=== PATIENT | female | born 1990 | race Two or more races ===

== ENCOUNTER 2018-06-12 13:20 | Outpatient (CLI) | payer MEDICAID ==
[2018-06-12] MEDS ORDERED: RINGERS SOLUTION,LACTATED 1,000 ML IV PRN (13:42)
[2018-06-12 13:58] LABS: APPEARANCE,URINE CLOUDY; BILIRUBIN,URINE NEGATIVE (NEGATIVE); GLUCOSE, URINE NEGATIVE (NEGATIVE); KETONES,URINE NEGATIVE (NEGATIVE); LEUKOCYTE ESTERASE,URINE MODERATE (NEGATIVE); NITRITE,URINE NEGATIVE (NEGATIVE); PROTEIN,URINE NEGATIVE (NEGATIVE)
[2018-06-12 14:00] LABS: COLOR,URINE YELLOW
[2018-06-12 14:29] LABS: URINE AMPHETAMINES SCREEN NEGATIVE; URINE BARBITURATES SCREEN NEGATIVE; URINE BENZODIAZEPINES SCREEN NEGATIVE; URINE COCAINE SCREEN NEGATIVE; URINE MARIJUANA (THC) SCREEN NEGATIVE; URINE METHADONE SCREEN NEGATIVE; URINE PHENCYCLIDINE SCREEN NEGATIVE
== END 2018-06-12 15:10 | disposition home or self-care (01) ==
LOC: LC 13:20
PROVIDERS: ATTEND Student in an Organized Health Care Education/Training Program
DX: O47.03 False labor before 37 completed weeks of gestation, third trimester (principal); Z3A.37 37 weeks gestation of pregnancy
CPT/HCPCS: 80307; 81005

== ENCOUNTER 2018-06-20 09:44 | Outpatient (CLI) | payer MEDICAID ==
--- NOTE | 2018-06-20 11:21 | Non Stress Test Report ---
Non Stress Test Datetime Report Generated by CPN: 06/20/2018 11:20 DEMOGRAPHIC EGA NST: 38.6 EGA NST: 37.5 INDICATION Indication for Study: Diabetes Mellitus; Ordered by Provider Indication for Study: Other Indication for Study (NST) Other: repeat NST from office diet controlled GDM Indication for Study (NST) Other: lc/dehydration VITAL SIGNS Pulse - NST: 77 RESP - NST: 18 NBPSYS NST: 105 NBPDIA NST: 59 MONITORING Monitor Explained: Monitor Explained; Test Explained; Patient Verbalized Understanding Monitor Explained: Monitor Explained; Test Explained; Patient Verbalized Understanding Time on Monitor: 06/20/2018 09:53 Time on Monitor: 06/12/2018 14:05 Time off Monitor: 06/20/2018 10:27 Time off Monitor: 06/12/2018 14:38 NST Duration: 34 NST Duration: 33 NST INTERVENTIONS NST Interventions: PO Hydration NST Interventions: PO Hydration; IV Fluids; Reposition Patient Physician Notified NST: P Peña CNM Physician Notified NST: C Bermudez CNM BABY A: [id number] BABY A Movement : Present Movement : Present Contraction Frequency : denies Contraction Frequency : 0 FHR Baseline : 140 FHR Baseline : 150 Accelerations : 15X15 Accelerations : 15X15 Decelerations : None Decelerations : None Variability : Moderate 6-25bpm Variability : Moderate 6-25bpm NST Review: Meets Criteria for Reactive NST NST Review: Meets Criteria for Reactive NST NST Review and Verified By : Corrina Corona RN NST Review and Verified By : Jake Pearson RN NST Results: Reactive NST Results: Reactive NST REPORT Report Trigger: Send Report
== END 2018-06-20 10:35 | disposition home or self-care (01) ==
LOC: LC 09:44
PROVIDERS: ATTEND Obstetrics & Gynecology
PROC: 4A1HXCZ Monitoring of Products of Conception, Cardiac Rate, External Approach (ICD-10-PCS; principal; 2018-06-20)
DX: O26.893 Other specified pregnancy related conditions, third trimester (principal); Z3A.38 38 weeks gestation of pregnancy
CPT/HCPCS: 59025

== ENCOUNTER 2018-06-21 10:00 | Outpatient (CLI) | payer MEDICAID ==
[2018-06-21 10:49] LABS: APPEARANCE,URINE SLIGHTLY-CLOUDY; BILIRUBIN,URINE NEGATIVE (NEGATIVE); COLOR,URINE YELLOW; GLUCOSE, URINE NEGATIVE (NEGATIVE); KETONES,URINE NEGATIVE (NEGATIVE); LEUKOCYTE ESTERASE,URINE SMALL (NEGATIVE); NITRITE,URINE NEGATIVE (NEGATIVE); PROTEIN,URINE NEGATIVE (NEGATIVE); URINE SPECIFIC GRAVITY 1.011; UROBILINOGEN,URINE NEGATIVE mg/dL (<2.0)
--- NOTE | 2018-06-21 11:34 | Non Stress Test Report ---
Non Stress Test Datetime Report Generated by CPN: 06/21/2018 11:34 DEMOGRAPHIC Test Number: 3 EGA NST: 39.0 INDICATION Indication for Study: Ordered by Provider URINE RESULTS Urine Protein, NST: Negative Urine Ketones - NST: Negative Urine Glucose - NST: Negative Urine Blood - NST: Negative MONITORING Monitor Explained: Monitor Explained; Test Explained; Patient Verbalized Understanding Time on Monitor: 06/21/2018 10:45 Time off Monitor: 06/21/2018 11:22 NST Duration: 37 NST INTERVENTIONS NST Interventions: PO Hydration; Reposition Patient Physician Notified NST: A. Raymond CNM BABY A: [id number] BABY A Movement : Present Contraction Frequency : x1 FHR Baseline : 145 Accelerations : 15X15 Decelerations : None Variability : Moderate 6-25bpm NST Review: Meets Criteria for Reactive NST NST Review and Verified By : NILS Dickson NST Results: Reactive NST REPORT Report Trigger: Send Report
[2018-06-21 11:46] LABS: URINE AMPHETAMINES SCREEN NEGATIVE; URINE BARBITURATES SCREEN NEGATIVE; URINE BENZODIAZEPINES SCREEN NEGATIVE; URINE COCAINE SCREEN NEGATIVE; URINE MARIJUANA (THC) SCREEN NEGATIVE; URINE METHADONE SCREEN NEGATIVE; URINE PHENCYCLIDINE SCREEN NEGATIVE
== END 2018-06-21 11:36 | disposition home or self-care (01) ==
LOC: LC 10:00
PROVIDERS: ATTEND Obstetrics & Gynecology
PROC: 4A1HXCZ Monitoring of Products of Conception, Cardiac Rate, External Approach (ICD-10-PCS; principal; 2018-06-21)
DX: O47.1 False labor at or after 37 completed weeks of gestation (principal); Z3A.39 39 weeks gestation of pregnancy
CPT/HCPCS: 59025; 80307; 81005

== ENCOUNTER 2018-06-21 22:36 | Outpatient (CLI) | payer MEDICAID ==
[2018-06-21 23:18] LABS: APPEARANCE,URINE SLIGHTLY-CLOUDY; BILIRUBIN,URINE NEGATIVE (NEGATIVE); COLOR,URINE YELLOW; GLUCOSE, URINE NEGATIVE (NEGATIVE); KETONES,URINE NEGATIVE (NEGATIVE); LEUKOCYTE ESTERASE,URINE NEGATIVE (NEGATIVE); NITRITE,URINE NEGATIVE (NEGATIVE); PROTEIN,URINE NEGATIVE (NEGATIVE); URINE SPECIFIC GRAVITY 1.012; UROBILINOGEN,URINE NEGATIVE mg/dL (<2.0)
[2018-06-21 23:34] LABS: URINE AMPHETAMINES SCREEN NEGATIVE; URINE BARBITURATES SCREEN NEGATIVE; URINE BENZODIAZEPINES SCREEN NEGATIVE; URINE COCAINE SCREEN NEGATIVE; URINE MARIJUANA (THC) SCREEN NEGATIVE; URINE METHADONE SCREEN NEGATIVE; URINE PHENCYCLIDINE SCREEN NEGATIVE
--- NOTE | 2018-06-21 23:54 | Non Stress Test Report ---
Non Stress Test Datetime Report Generated by CPN: 06/21/2018 23:54 DEMOGRAPHIC EGA NST: 39.0 INDICATION Indication for Study: Ordered by Provider MONITORING Monitor Explained: Monitor Explained; Test Explained; Patient Verbalized Understanding Time on Monitor: 06/21/2018 23:07 Time off Monitor: 06/21/2018 23:46 NST Duration: 39 NST INTERVENTIONS NST Interventions: Reposition Patient Physician Notified NST: Dr. Cj BABY A: [id number] BABY A Movement : Present Contraction Frequency : none noted FHR Baseline : 135 Accelerations : 15X15 Decelerations : None Variability : Moderate 6-25bpm NST Review: Meets Criteria for Reactive NST NST Review and Verified By : Clementina Chowdary RN NSVictoriano Results: Reactive NST REPORT Report Trigger: Send Report
== END 2018-06-21 23:51 | disposition home or self-care (01) ==
LOC: LC 22:36
PROVIDERS: ATTEND Obstetrics & Gynecology
PROC: 4A1HXCZ Monitoring of Products of Conception, Cardiac Rate, External Approach (ICD-10-PCS; principal; 2018-06-21)
DX: O47.1 False labor at or after 37 completed weeks of gestation (principal); Z3A.39 39 weeks gestation of pregnancy
CPT/HCPCS: 59025; 80307; 81005

== ENCOUNTER 2018-06-27 15:06 | Inpatient (IN) | payer MEDICAID ==
[2018-06-28] MEDS: RINGERS SOLUTION,LACTATED 1,000 ML IV PRN ×3 (07:50→15:39)
[2018-06-28] MEDS ORDERED: OXYTOCIN/NORMAL SALINE 20 UNIT/1,000 ML RTUINJ ONE (08:04)
[2018-06-28] MEDS ORDERED: LIDOCAINE 1% INJ-PF (10 MG/ML) 30 ML SDV ONE (08:04)
[2018-06-28] MEDS ORDERED: OXYTOCIN 10 UNIT/ML VIAL ONE (08:04)
[2018-06-28] MEDS ORDERED: MISOPROSTOL 0.2 MG TABLET ONE (08:04)
[2018-06-28] MEDS ORDERED: OXYTOCIN/NORMAL SALINE 20 UNIT/1,000 ML RTUINJ IV PRN ×2 (08:05→19:45)
[2018-06-28] MEDS ORDERED: RINGERS SOLUTION,LACTATED 300 ML IV ONE (08:05)
[2018-06-28 08:17] LABS: ABSOLUTE EOSINOPHILS # (AUTO) 0.1 10^3/uL (0.0-0.6); ABSOLUTE LYMPHOCYTES (AUTO) 1.9 10^3/uL (0.5-4.7); ABSOLUTE MONOCYTES (AUTO) 0.4 10^3/uL (0.1-1.4); ABSOLUTE NEUT (AUTO) 4.6 10^3/uL (1.7-8.2); BASOPHILS % (AUTO) 0.2 % (0-2); HEMATOCRIT 31.2 % (36.0-47.0); HEMOGLOBIN 10.2 g/dL (12.0-15.5); LYMPHOCYTES % (AUTO) 26.8 % (13-45); MEAN CORPUSCULAR HEMOGLOBIN 26.5 pg (27.0-33.4); MEAN CORPUSCULAR HGB CONC 32.8 g/dL (32.0-36.0); MEAN CORPUSCULAR VOLUME 81 fl (80-97); MONOCYTES % (AUTO) 6.3 % (3-13); PLATELET COUNT 252 10^3/uL (150-450); RED BLOOD COUNT 3.86 10^6/uL (3.72-5.28); RED CELL DISTRIBUTION WIDTH 14.3 % (11.5-14.0); SEGMENTED NEUTROPHILS % (AUTO) 65.7 % (42-78); TOTAL CELLS COUNTED % (AUTO) 100 %
[2018-06-28 08:36] LABS: APPEARANCE,URINE SLIGHTLY-CLOUDY; BILIRUBIN,URINE NEGATIVE (NEGATIVE); COLOR,URINE YELLOW; GLUCOSE, URINE NEGATIVE (NEGATIVE); KETONES,URINE NEGATIVE (NEGATIVE); LEUKOCYTE ESTERASE,URINE TRACE (NEGATIVE); NITRITE,URINE NEGATIVE (NEGATIVE); PROTEIN,URINE NEGATIVE (NEGATIVE); URINE SPECIFIC GRAVITY 1.017; UROBILINOGEN,URINE NEGATIVE mg/dL (<2.0)
--- NOTE | 2018-06-28 08:39 | Admission Physical ---
Datetime Report Generated by CPN: 06/28/2018 08:34 CURRENT ADMISSION Chief Complaint: Scheduled Induction of Labor Indication for Induction: Maternal Diabetes Admit Impression : Term, Intrauterine Admit Plan: Admit to Unit; Initiate Labor Induction Protocol ALLERGIES Medication Allergies: No Medication Allergies: No Known Allergies (06/21/2018) Latex: No Latex Allergies Food Allergies: no Environmental Allergies: no OBSTETRICAL HISTORY EDC: 06/28/2018 00:00 : 1 Para: 0 Term: 0 : 0 SAB: 0 IAB: 0 Ectopic: 0 Livin Cesareans: 0 VBACs: 0 Multiple Births: 0 Gestational Diabetes: Yes Rh Sensitization: No Incompetent Cervix: No MABEL: No Infertility: No ART Treatment: No Uterine Anomaly: No IUGR: No Hx Previous C/S: No Macrosomia: No Hx Loss/Stillborn: No PIH: No Hx : No Placenta Previa/Abruption: No Depression/PP Depression: No PTL/PROM: No Post Hemorrhage: No Current Procedures: Ultrasound; NST Obstetrical History Comments: GDM poor control SEE RECORDS Alcohol: No Marijuana : Yes Cocaine: No Other Illicit Drugs: No Cigarettes: Never Smoker. [id number] MEDICAL HISTORY Diabetes: No Diabetes Type: Gestational Diabetes Blood Transfusion: No Pulmonary Disease (Asthma, TB): No Breast Disease: Yes Hypertension: No Tool Maker Bench Surgery: No Heart Disease: No Hosp/Surgery: Yes Autoimmune Disorder: No Anesthetic Complications: No Kidney Disease: Yes Abnormal Pap Smear: No Neuro/Epilepsy: No Psychiatric Disorders: No Other Medical Diseases: No Hepatitis/Liver Disease: No Significant Family History: No Varicosities/Phlebitis: No Trauma/Violence : No Thyroid Dysfunction: No Medical History Comments: Gallbladder and appendictomy INFECTIOUS HISTORY Gonorrhea: No Genital Herpes: No Chlamydia: Yes Tuberculosis: No Syphilis: No Hepatitis: No HIV/AIDS Exposure: No Rash or Viral Illness: No HPV: No PHYSICAL EXAM General: Normal HEENT: Normal Neurologic: Normal Thyroid: Normal Heart: Normal Lungs: Normal Breast: Normal Back: Normal Abdomen: Normal Genitourinary Exam: Normal Extremities: Normal DTRs: Normal Pelvic Type: Adequate Vital Signs: Reviewed; Within Normal Limits MEMBRANES Pooling: Negative Membranes: Intact FETUS A EGA: 40.0 Monitoring: External US FHR- Baseline: 150 Variability: Moderate 6-25bpm Accelerations: 15X15 Decelerations: None FHR Category: Category I Admit Comment: at 40 wks with Hx of GDM -A1 this . Here this morning for IOL. Pt doing well, no complaints. Orders to start Routine Pitocin per Dr Guzman. GBS negative, VE in the office yesterday pt was noted to be 3 cm. Pt does plan to get an epidural when she is in labor. Attending MD is Dr Guzman today PLANS FOR LABOR AND DELIVERY Labor and Delivery: None Pain Management: Epidural Feeding Preference: Breast Benefit of Breast Feed Discussed: Yes Circumcision: N/A INFORMED CONSENT Assignment: Cory Guzman MD Signature: with User ID: [email or web address] : with User ID: [email or web address]
[2018-06-28 08:52] LABS: URINE AMPHETAMINES SCREEN NEGATIVE; URINE BARBITURATES SCREEN NEGATIVE; URINE BENZODIAZEPINES SCREEN NEGATIVE; URINE COCAINE SCREEN NEGATIVE; URINE MARIJUANA (THC) SCREEN NEGATIVE; URINE METHADONE SCREEN NEGATIVE; URINE PHENCYCLIDINE SCREEN NEGATIVE
[2018-06-28] MEDS ORDERED: EPHEDRINE SULFATE INJ 50 MG/1 ML AMPULE ONE (14:48)
[2018-06-28] MEDS ORDERED: BUPIVACAINE HCL 0.25 % INJ/PF (2.5 MG/1 ML) 30 ML VIAL ONE (14:49)
[2018-06-28] MEDS ORDERED: FENTANYL/BUPIVACAINE/NS/PF 300 MCG/150 ML RTUINJ EPI ONE (14:49)
--- NOTE | 2018-06-28 18:44 | Warning Signs in Babies ---
VOD Warning Signs Datetime Report Generated by [facility]: 06/28/2018 18:44 VOD#608 -Warning Signs in Babies: Viewed with Parent(s)/Family (06/28/2018 09:30:Brittani Brooks RN)
[2018-06-28] MEDS ORDERED: BENZOCAINE/MENTHOL AEROSOL SPRAY 56 ML TOP PRN (19:45)
[2018-06-28] MEDS ORDERED: PSEUDOEPHEDRINE HCL 30 MG TABLET PO PRN (19:45)
[2018-06-28] MEDS ORDERED: PROMETHAZINE HCL 25 MG SUPP.RECT PR PRN (19:45)
[2018-06-28] MEDS ORDERED: PROMETHAZINE HCL INJ 25 MG/1 ML VIAL IV PRN (19:45)
[2018-06-28] MEDS ORDERED: PROMETHAZINE HCL 25 MG TABLET PO PRN (19:45)
[2018-06-28] MEDS ORDERED: GLYCERIN/WITCH HAZEL LEAF 1 EACH MED..WIPE TP PRN (19:45)
[2018-06-28] MEDS ORDERED: MAGNESIUM HYDROXIDE SUSP 30 ML UDCUP PO PRN (19:45)
[2018-06-28] MEDS ORDERED: MEASLES,MUMPS&RUBELLA VACC/PF 0.5 ML VIAL SUBCUT PRN (19:45)
[2018-06-28] MEDS ORDERED: DIBUCAINE 1% OINTMENT 56 GM TP PRN (19:45)
[2018-06-28] MEDS ORDERED: NA PHOS,M-B/NA PHOS,DI-BA (ADULT) 133 ML ENEMA PR PRN (19:45)
[2018-06-28] MEDS ORDERED: ACETAMINOPHEN 650 MG SUPP.RECT PR PRN (19:45)
[2018-06-28] MEDS ORDERED: DIPHENHYDRAMINE HCL 25 MG CAPSULE PO PRN (19:45)
[2018-06-28] MEDS ORDERED: DIPH/PERTUSS(ACELL)/TETANUS VAC/PF 0.5 ML SYR (>=10YO) IM PRN (19:45)
[2018-06-28] MEDS ORDERED: ZOLPIDEM TARTRATE 5 MG TABLET PO PRN (19:45)
--- NOTE | 2018-06-28 21:19 | Delivery Summary ---
Del Sum A-C Datetime Report Generated by CPN: 06/28/2018 21:18 DELIVERY PERSONNEL DELIVERY PERSONNEL: [id number] Delivery Doctor:: Cory Guzman MD Labor and Delivery Nurse:: Comfort Norris RNqualitative field project manager Nurse:: Cecille Koch RN Nursery Nurse:: Lolyhank Hernandez RN MATERNAL INFORMATION Delivery Anesthesia: Epidural Medications After Delivery: Pitocin Drip 20 Units/1000ml NSS; Cytotec 1000mcg Per Rectum/Vagina Maternal Complications: None LABOR SUMMARY EDC: 06/28/2018 00:00 No. Babies in Womb: 1 Attempted: No Labor Anesthesia: Epidural LABOR INFORMATION Reason for Induction: Maternal Diabetes Onset of Labor: 06/28/2018 14:21 Complete Dilatation: 06/28/2018 18:52 Oxytocin: Induction Group B Beta Strep: neg Steroids Given: None Reason Steroids Not Administered: Not Applicable MEMBRANES Membranes Rupture Method: Artificial Rupture of Membranes: 06/28/2018 14:21 Length of Rupture (hr): 5.17 Amniotic Fluid Color: Moderate Meconium Amniotic Fluid Amount: Moderate Amniotic Fluid Odor: Normal STAGES OF LABOR Stage 1 hr: 4 Stage 1 min: 31 Stage 2 hr: 0 Stage 2 min: 39 Stage 3 hr: 0 Stage 3 min: 7 Total Time in Labor hr: 5 Total Time in Labor min: 17 VAGINAL DELIVERY Episiotomy: None Laceration #1: None Laceration Extension #1: N/A Laceration Repair: Not Applicable Sponge Count Correct: N/A CSECTION DELIVERY Primary Indication: N/A Secondary Indication: N/A CSection Incidence: N/A Labor: N/A Elective: N/A CSection Incision: N/A BABY A INFORMATION Delivery Date/Time: 06/28/2018 19:31 Method of Delivery: Vaginal Born in Route : No : N/A Forceps: N/A Vacuum Extraction: N/A Shoulder Dystocia : No PRESENTATION/POSITION BABY A Presentation: Cephalic Cephalic Presentation: Vertex Vertex Position: Direct OA Breech Presentation: N/A PLACENTA INFORMATION BABY A Placenta Delivery Time : 06/28/2018 19:38 Placenta Method of Delivery: Manual Removal Placenta Status: Delivered SCORES BABY A Heart Rate 1 min: >100 bpm Resp Effort 1 min: Good Cry Reflex Irritability 1 min: Cough or Sneeze or Pulls Away Muscle Tone 1 min: Active Motion Color 1 min: Blue/Pale Resuscitation Effort 1 min: Tactile Stimulation SCORE 1 MIN: 8 Heart Rate 5 min: >100 bpm Resp Effort 5 min: Good Cry Reflex Irritability 5 min: Cough or Sneeze or Pulls Away Muscle Tone 5 min: Active Motion Color 5 min: Body Duck, Extremities Blue Resuscitation Effort 5 min: Tactile Stimulation SCORE 5 MIN: 9 INFANT INFORMATION BABY A Gestational Age at Delivery: 40.0 Gestational Status: Full Term- 39- 40.6 Weeks Infant Outcome : Liveborn Condition : Stable Infant Sex: Female IDENTIFICATION BABY A Infant Verification Date/Time: 06/28/2018 20:13 ID Band Number: [id number] Mother's Name Verified: Yes Infant RN Verifying : B. Ring RN _ M. Chavira RN WEIGHT/LENGTH BABY A Birthweight (gm): 3300 Weight (lb): 7 Infant Weight (oz): 4 Infant Length (in): 20.00 Infant Length (cm): 50.80 CORD INFORMATION BABY A No. Cord Vessels: 3 Nuchal Cord : N/A Cord Blood Taken: Yes-For Storage (Mom's Blood type +) Suction: Mouth; Nose ASSESSMENT BABY A Complications: Meconium Physical Findings at Delivery: Within Normal Limits Physical Findings- Other: see nursery assessment Skin to Skin: Yes Clam Treader/ALS Called : No Care By: Destinee Hernandez RN Transferred To: Remains with Mother BABY B INFORMATION : N/A SIGNATURES Signature: with User ID: [email or web address]
[2018-06-28] MEDS: IBUPROFEN 800 MG TABLET PO SCH (22:50)
[2018-06-28] MEDS: FAMOTIDINE 20 MG TABLET PO SCH (22:50)
[2018-06-29] MEDS: ACETAMINOPHEN WITH CODEINE #3 TABLET PO PRN (01:06)
[2018-06-29] MEDS: IBUPROFEN 800 MG TABLET PO SCH ×4 (06:17→21:21)
[2018-06-29 07:29] LABS: HEMATOCRIT 30.5 % (36.0-47.0); HEMOGLOBIN 10.1 g/dL (12.0-15.5); MEAN CORPUSCULAR HEMOGLOBIN 26.7 pg (27.0-33.4); MEAN CORPUSCULAR HGB CONC 33.2 g/dL (32.0-36.0); MEAN CORPUSCULAR VOLUME 81 fl (80-97); PLATELET COUNT 223 10^3/uL (150-450); RED BLOOD COUNT 3.79 10^6/uL (3.72-5.28); RED CELL DISTRIBUTION WIDTH 14.4 % (11.5-14.0); WHITE BLOOD COUNT 8.1 10^3/uL (4.0-10.5)
[2018-06-29 08:14] LABS: RUBELLA INTERPRETATION POSITIVE
--- NOTE | 2018-06-29 09:35 | PDOC PROGRESS REPORT ---
Subjective-OB Progress Note for:: 06/29/18 - PP Day #1,doing well, Hx GDM this , B+ Rubela Immune, Physical Exam (OB) Vital Signs: Temp Pulse Resp BP Pulse Ox 98.1 F 65 17 106/50 L 98 06/29/18 07:35 06/29/18 07:35 06/29/18 07:35 06/29/18 07:35 06/29/18 07:35 Intake & Output 06/28/18 06/29/18 06/30/18 06:59 06:59 06:59 Intake Total 3475 Balance 3475 Weight 101.2 kg - General General Appearance: Appears well, Alert - PIH/Pre-Eclampsia Headache: Absent Epigastric Pain: No Visual Changes: No - Lochia Lochia Amount: Small 10-25 ml Lochia Color: Rubra/Red - Abdomen Description: Tender Hernia Present: No Fundal Description: Firm Fundal Height: 1/u - 2/u - Respiratory Respiratory Status: No respiratory distress - Abdominal Distension: No distension Tenderness: Nontender - Genitourinary Genitourinary Note: voiding - Extremities Upper extremity: Normal inspection Lower extremities: Other - trace edema - Neurological Cognition: Normal Orientation: AAOx4 - Psychological Associated symptoms: Normal affect, Normal mood - Skin Skin Temperature: Warm Skin Moisture: Dry Objective-Diagnostic Laboratory: 06/29/18 07:08 06/29/18 07:08 WBC 8.1 RBC 3.79 Hgb 10.1 L Hct 30.5 L MCV 81 MCH 26.7 L MCHC 33.2 RDW 14.4 H Plt Count 223 Assessment and Plan(PN) - Assessment and Plan (1) Gestational diabetes mellitus (GDM) affecting Is this a current diagnosis for this admission?: Yes (2) (normal spontaneous vaginal delivery) Is this a current diagnosis for this admission?: Yes - Time Spent with Patient Time with patient: Less than 15 minutes Medications reviewed and adjusted accordingly: Yes - Disposition Anticipated Discharge: Home Within: within 24 hours
[2018-06-29] MEDS: PRENATAL VITAMIN W DHA CAPSULE PO SCH (09:45)
[2018-06-29] MEDS: FAMOTIDINE 20 MG TABLET PO SCH ×2 (09:46→21:21)
[2018-06-29] MEDS: DOCUSATE SODIUM 100 MG CAPSULE PO SCH ×2 (09:46→21:23)
[2018-06-29] MEDS: SENNOSIDES/DOCUSATE 8.6-50 MG 1 EACH TABLET PO SCH (09:46)
[2018-06-29] MEDS: FERROUS SULFATE 325 MG TABLET PO SCH ×2 (09:46→21:23)
[2018-06-29 19:31] VITALS: BP 109/58
[2018-06-30] MEDS: IBUPROFEN 800 MG TABLET PO SCH (06:33)
[2018-06-30] MEDS: ACETAMINOPHEN WITH CODEINE #3 TABLET PO PRN (08:15)
--- NOTE | 2018-06-30 09:33 | PDOC DISCHARGE SUMMARY ---
Final Diagnosis Discharge Date: 06/30/18 - PP Dayt #2, doing well, O+, Rubella Immune, , Hx of GDM this - Final Diagnosis (1) Gestational diabetes mellitus (GDM) affecting Is this a current diagnosis for this admission?: Yes (2) (normal spontaneous vaginal delivery) Is this a current diagnosis for this admission?: Yes Discharge Data - Discharge Medication Prescriptions: Ibuprofen [Motrin 800 mg Tablet] 800 mg PO Q8 #60 tablet Home Medications: Vit,Calc76/Iron/Folic [Prenatabs Rx Tablet] 1 tab PO DAILY 06/12/18 Ibuprofen [Motrin 800 mg Tablet] 800 mg PO Q8 #60 tablet 06/30/18 Reason(s) for Admission: Induction of Labor, Gestional Diabetes Intrapartum Procedure(s): Spontaneous Vaginal Delivery - Diagnosis Test Laboratory: Temp Pulse Resp BP Pulse Ox 97.1 F 82 16 109/58 L 100 06/30/18 08:50 06/30/18 08:50 06/30/18 08:50 06/29/18 19:08 06/30/18 08:50 06/28/18 06/28/18 06/29/18 07:20 07:59 07:08 RBC 3.86 3.79 Hgb 10.2 L 10.1 L Hct 31.2 L 30.5 L Urine Opiates Screen NEGATIVE - Discharge information/Instructions Discharge Activity: Activity As Tolerated, No Lifting Over 10 Pounds, No Lifting/Push/Pulling, Pelvic Rest Discharge Diet: As Tolerated, Regular Disposition: HOME, SELF-CARE Follow up with: [facility] in: 4, Weeks
[2018-06-30] MEDS: FAMOTIDINE 20 MG TABLET PO SCH (10:36)
[2018-06-30] MEDS: FERROUS SULFATE 325 MG TABLET PO SCH (10:36)
[2018-06-30] MEDS: DOCUSATE SODIUM 100 MG CAPSULE PO SCH (10:36)
[2018-06-30] MEDS: PRENATAL VITAMIN W DHA CAPSULE PO SCH (10:37)
[2018-06-30] MEDS: SENNOSIDES/DOCUSATE 8.6-50 MG 1 EACH TABLET PO SCH (10:37)
[2018-07-02 10:51] LABS: HEPATITIS C QUANTITATION HCV Not Detected IU/mL (.)
== END 2018-06-30 14:02 | disposition home or self-care (01) | DRG 807 ==
LOC: LR 06-28 07:19 → 2S 06-28 21:58
PROVIDERS: ADMIT Obstetrics & Gynecology Gynecology; ATTEND Obstetrics & Gynecology Gynecology
PROC: 10E0XZZ Delivery of Products of Conception, External Approach (ICD-10-PCS; principal; 2018-06-28)
DX: O24.420 Gestational diabetes mellitus in childbirth, diet controlled (principal); Z37.0 Single live birth; O77.0 Labor and delivery complicated by meconium in amniotic fluid; O99.334 Smoking (tobacco) complicating childbirth; F17.211 Nicotine dependence, cigarettes, in remission; Z3A.40 40 weeks gestation of pregnancy
CPT/HCPCS: 36415; 80307; 81005; 85025; 85027; 86592; 86706; 86762; 86850; 86900; 86901; 87522; 94760; J2550; J2590; J3010; J3490

== ENCOUNTER → 2018-07-01 | Outpatient (CLI) | payer MEDICAID ==
[2018-07-03 09:31] LABS: HEPATITS B SURFACE ANTIGEN Negative (Negative)
== END ==
LOC: LAB 15:11
PROVIDERS: ATTEND Pediatrics Neonatal-Perinatal Medicine
DX: Z11.59 Encounter for screening for other viral diseases (principal)
CPT/HCPCS: 87340